=== PATIENT | male | born 1950 | race Hispanic/Latino ===

== ENCOUNTER → 2018-10-17 | Outpatient (CLI) | payer OTHER ==
[~2018-10-17] MED LIST: ASPI-891 PO; CHOL200074 PO; ESCI5TAB PO; FERR159T2 PO; LOSA50TA64 PO; METO25TA3 PO; NITR0.4T SL; SIMV40TA59 PO
[2018-10-17 14:32] LABS: CREATININE 0.9 mg/dL (0.5-1.5)
== END | disposition home or self-care (01) ==
LOC: LAB 13:20
PROVIDERS: ATTEND Neurological Surgery
DX: M48.062 Spinal stenosis, lumbar region with neurogenic claudication (principal)
CPT/HCPCS: 36415; 82565; 84520

== ENCOUNTER 2018-11-15 06:07 | Day surgery (SDC) | payer OTHER ==
[2018-11-14 15:12] VITALS: BP 135/77
[2018-11-14 15:51] LABS: EOSINOPHILS % (AUTO) 4.9 % (0.0-8.0); HEMATOCRIT 43.2 % (42-54); LYMPHOCYTES % (AUTO) 24.5 % (21.0-51.0); MEAN CORPUSCULAR HEMOGLOBIN 31.7 pg (27.0-33.0); MEAN CORPUSCULAR HGB CONC 33.7 g/dL (32.0-36.0); MEAN CORPUSCULAR VOLUME 94.2 fL (79-99); NEUTROPHILS % (AUTO) 62.6 % (40.0-77.0); PLATELET COUNT (AUTO) 267 K/uL (130-400); RED BLOOD CELL COUNT(AUTO) 4.59 MIL/uL (4.50-6.20); RED CELL DISTRIBUTION WIDTH 13.7 % (11.0-15.5); WHITE BLOOD COUNT (AUTO) 10.4 K/uL (4.8-10.8)
[2018-11-14 16:02] LABS: POTASSIUM 4.2 mmol/L (3.5-5.1)
[2018-11-14 16:27] LABS: CREATININE 0.8 mg/dL (0.5-1.5)
[~2018-11-15] VITALS: Ht 167.6 cm; Wt 112.5 kg
[~2018-11-15 06:07] MED LIST changes: +ASPI-555 PO; -ASPI-891 PO; -CHOL200074 PO; +ESCI20TA36 PO; -ESCI5TAB PO; -FERR159T2 PO; +METO-408 PO; -METO25TA3 PO
[2018-11-15 06:30] VITALS: BP 135/78
[2018-11-15] MEDS ORDERED: IOPAMIDOL 10 ML VIAL ONE ×3 (07:03→07:42)
[2018-11-15] MEDS ORDERED: ISOVUE-M 200 20 ML VIAL IT ONE (07:04)
[2018-11-15] MEDS ORDERED: LIDOCAINE HCL 1% 20 ML VIAL ONE (07:28)
--- NOTE | 2018-11-15 08:00 | NUR ---
CT LUMBAR MYELOGRAM PROCEDURE PERFORMED BY DR chris cazares. PUNCTURE SITE LOWER BACK. PATIENT TOLERATED PROCEDURE WELL. CONTRAST INJECTION OF ISOVUE 200MG/20ML GIVEN AT 0730. END OF PROCEDURE AT 0740. SPINAL NEEDLE REMOVED AND BAND AID APPLIED WITH NO BLEEDING NOTED. REPORT GIVEN TO Gunnar ALCALA RN AND PATIENT TRANSPORTED TO DAY PATIENT VIA BED AT 0800. AAO X3 WITH NO C/O PAIN.
[2018-11-15 08:10] VITALS: BP 118/74
[2018-11-15 08:25] VITALS: BP 117/71
[2018-11-15 08:40] VITALS: BP 123/69
[2018-11-15 08:55] VITALS: BP 123/69
[2018-11-15 10:00] VITALS: BP 128/70
--- NOTE | 2018-11-15 10:45 | NUR ---
PT RECEIVED FROM IR NO PAIN OR DRAINAGE TO SITE. TIME OF BED REST 1 HR AND 2 HOURS TO BE D/C FROM TIME OF ARRIVAL TO DAY PATIENT.
--- NOTE | 2018-11-15 10:46 | NUR ---
D/C PT LEFT VIA WHEEL CHAIR IN PVT CAR WITH SPOUSE WITH NO PAIN, NO DISCHARGE TO SITE ON BACK. PT SCHEDULED WITH F/U Nov 10:30 AM.
== END 2018-11-15 10:20 | disposition home or self-care (01) ==
LOC: DAH 06:07
PROVIDERS: ATTEND Neurological Surgery
DX: M54.16 Radiculopathy, lumbar region (principal); E66.01 Morbid (severe) obesity due to excess calories; I25.2 Old myocardial infarction; I25.10 Atherosclerotic heart disease of native coronary artery without angina pectoris; F32.9 Major depressive disorder, single episode, unspecified; F17.210 Nicotine dependence, cigarettes, uncomplicated; Z72.89 Other problems related to lifestyle; Z98.890 Other specified postprocedural states; Z68.41 Body mass index [BMI] 40.0-44.9, adult; Z79.82 Long term (current) use of aspirin; Z79.899 Other long term (current) drug therapy; Z82.49 Family history of ischemic heart disease and other diseases of the circulatory system; Z83.3 Family history of diabetes mellitus
CPT/HCPCS: 36415; 62304; 72132; 80048; 85025; 93005; A4606; Q9966

== ENCOUNTER 2018-12-23 12:00 | Observation (INO) | payer OTHER ==
[~2018-12-23] VITALS: Ht 167.6 cm; Wt 112.6 kg
[~2018-12-23 12:00] MED LIST changes: -ASPI-555 PO; -ESCI20TA36 PO; -LOSA50TA64 PO; -METO-408 PO; -NITR0.4T SL
[2018-12-23 13:05] VITALS: BP 132/65
[2018-12-23 13:16] LABS: BASOPHILS % (AUTO) 1.3 % (0.0-5.0); EOSINOPHILS % (AUTO) 5.8 % (0.0-8.0); LYMPHOCYTES % (AUTO) 31.7 % (21.0-51.0); MEAN CORPUSCULAR HGB CONC 34.5 g/dL (32.0-36.0); MEAN CORPUSCULAR VOLUME 92.9 fL (79-99); MONOCYTES % (AUTO) 5.6 % (3.0-13.0); NEUTROPHILS % (AUTO) 55.6 % (40.0-77.0); PLATELET COUNT (AUTO) 274 K/uL (130-400); RED BLOOD CELL COUNT(AUTO) 4.62 MIL/uL (4.50-6.20); RED CELL DISTRIBUTION WIDTH 13.5 % (11.0-15.5); WHITE BLOOD COUNT (AUTO) 9.6 K/uL (4.8-10.8)
[2018-12-23 13:32] LABS: CREATININE 0.9 mg/dL (0.5-1.5); POTASSIUM 4.4 mmol/L (3.5-5.1)
[2018-12-23] MEDS ORDERED: LOSA50TA64 PO (14:22)
[2018-12-23] MEDS ORDERED: ASPI-1181 PO (14:22)
[2018-12-23] MEDS ORDERED: METO-408 PO (14:22)
[2018-12-23] MEDS ORDERED: ESCI20TA PO (14:22)
[2018-12-27] VITALS (23 sets, daily range): BP systolic 96–129; BP diastolic 48–93
[2018-12-27] MEDS ORDERED: LACTATED RINGERS 1000ML 1,000 ML IV ONE (06:26)
[2018-12-27] MEDS ORDERED: CEFAZOLIN SODIUM 1 GM VIAL ONE (06:26)
[2018-12-27] MEDS ORDERED: BUPIVACAINE/EPI/PF 0.25% 50 ML VIAL ONE (06:43)
[2018-12-27] MEDS ORDERED: THROMBIN-JMI 20000 UNIT KIT TP ONE (06:43)
[2018-12-27] MEDS ORDERED: DURAMORPH PF1 MG/ML 10ML AMP IV ONE (06:43)
[2018-12-27] MEDS ORDERED: BACITRACIN 50,000 UNIT VIAL ONE (06:43)
[2018-12-27] MEDS ORDERED: NITR0.4T50 SL (06:53)
[2018-12-27] MEDS ORDERED: VITA1TAB63 PO (06:54)
[2018-12-27] MEDS ORDERED: PROPOFOL 10 MG/ML 20ML VIAL IV ONE (07:24)
[2018-12-27] MEDS ORDERED: FENTANYL CITRATE PF 50 MCG/1 ML 5ML AMP IV ONE (07:24)
[2018-12-27] MEDS ORDERED: MIDAZOLAM HCL 1 MG/ML 2ML VIAL ONE (07:24)
[2018-12-27] MEDS ORDERED: LIDOCAINE PF 2% 5ML ABBOJECT ONE (07:27)
[2018-12-27] MEDS ORDERED: ROCURONIUM 10MG/1ML SYR 10 MG/ML ML ONE ×2 (07:27→09:09)
[2018-12-27] MEDS ORDERED: GENTAMICIN 80 MG/NS 100 ML PB 100 ML IV ONE (08:19)
[2018-12-27] MEDS ORDERED: ONDANSETRON HCL 4 MG/2 ML VIAL ONE (08:41)
[2018-12-27] MEDS ORDERED: DEXAMETHASONE SOD PHOSPHATE 4 MG/ML 1ML VIAL ONE ×5 (08:41→08:43)
[2018-12-27] MEDS ORDERED: NEOSTIGMINE 5MG/5ML SYR IV ONE (10:47)
[2018-12-27] MEDS ORDERED: GLYCOPYRROLATE 1 MG/5 ML SYRINGE ONE (10:47)
[2018-12-27] MEDS ORDERED: KETOROLAC TROMETHAMINE 30MG/ML ONE (11:08)
[2018-12-27] MEDS ORDERED: FENTANYL CITRATE PF 50 MCG/1 ML 2ML VIAL ONE (11:17)
[2018-12-27] MEDS ORDERED: NITROGLYCERIN 0.4 MG SL TAB SL SCH (11:30)
[2018-12-27] MEDS ORDERED: HYDROCODONE/ACETAMINOPHEN 5/325 MG TAB PO PRN (11:30)
[2018-12-27] MEDS: DEXAMETHASONE SOD PHOSPHATE 4 MG/ML 1ML VIAL IVP SCH ×2 (11:30→18:15)
[2018-12-27] MEDS ORDERED: PROMETHAZINE HCL 25 MG/ML 1ML AMPULE IM PRN (11:30)
[2018-12-27] MEDS ORDERED: SODIUM CHLORIDE 0.9% 10 ML VIAL IVP PRN (11:30)
[2018-12-27] MEDS: CEFAZOLIN SODIUM 1 GM VIAL ONE ×2 (11:42→11:50)
[2018-12-27] MEDS: LACTATED RINGERS 1000ML 1,000 ML IV SCH (14:22)
[2018-12-27] MEDS: MORPHINE SULFATE 2 MG/ML 1ML SYG IVP PRN (19:47)
[2018-12-27] MEDS ORDERED: CEFAZOLIN SODIUM 1 GM VIAL IVP SCH (20:00)
[2018-12-27] MEDS ORDERED: SIMVASTATIN 20 MG TABLET PO SCH (21:00)
[2018-12-27] MEDS ORDERED: ASPIRIN 81 MG EC TAB PO SCH (21:00)
[2018-12-27] MEDS ORDERED: LOSARTAN 50 MG TABLET PO SCH (21:00)
[2018-12-28] MEDS: MORPHINE SULFATE 2 MG/ML 1ML SYG IVP PRN (00:06)
[2018-12-28] MEDS: DEXAMETHASONE SOD PHOSPHATE 4 MG/ML 1ML VIAL IVP SCH ×3 (00:06→11:30)
[2018-12-28] MEDS: LACTATED RINGERS 1000ML 1,000 ML IV SCH (00:15)
[2018-12-28] MEDS ORDERED: TEMAZEPAM 15 MG CAPSULE ONE (00:59)
[2018-12-28] MEDS ORDERED: MAG HYDROX/AL HYDROX/SIMETH ES 30 ML SUSP UDCUP ONE (01:15)
[2018-12-28] MEDS ORDERED: MAG HYDROX/AL HYDROX/SIMETH ES 30 ML SUSP UDCUP PO PRN (01:30)
[2018-12-28] MEDS ORDERED: TEMAZEPAM 15 MG CAPSULE PO PRN (01:30)
[2018-12-28 03:18] VITALS: BP 112/56
[2018-12-28 07:58] VITALS: BP 97/61
--- NOTE | 2018-12-28 14:30 | NUR ---
DISCHARGE S/P VOID AFTER HANNA REMOVAL. LATE DISCHARGE DUE TO PENDING DR. LUNA TO ROUND AFTER HIS SURGERY CASE. OK TO DISCHARGE HOME PER DR. LUNA. SCAR REMOVED, CATH TIP INTACT. DRESSING TO LOWER BACK CHANGED, INCISION IS DRY AND INTACT. DRESSING CHANGE TEACHING DONE WITH PATIENT AND USING TEACHBACK, VERBALIZED UNDERSTANDING. IV REMOVED, CATH TIP INTACT. DR. LUNA INCISION CARE INSTRUCTIONS GIVE AND REVIEWED WITH PATIENT, VERBALIZED UNDERSTANDING. STAPLE REMOVAL KIT GIVE TO . PENDING TO BE TRANSFERRED OUT VIA PRIVATE VEHICLE.
[2018-12-28] MEDS ORDERED: Metoprolol Succinate 25 MG PO SCH (21:00)
== END 2018-12-28 14:44 | disposition home or self-care (01) ==
LOC: EDSTATUS 12:00 → DAHIP 12-27 05:48 → 4AH 12-27 11:31
PROVIDERS: ADMIT Neurological Surgery; ATTEND Neurological Surgery
DX: M48.061 Spinal stenosis, lumbar region without neurogenic claudication (principal); I25.10 Atherosclerotic heart disease of native coronary artery without angina pectoris; I25.2 Old myocardial infarction; I25.5 Ischemic cardiomyopathy; M21.379 Foot drop, unspecified foot; Z98.61 Coronary angioplasty status; Z95.810 Presence of automatic (implantable) cardiac defibrillator; Z79.899 Other long term (current) drug therapy
CPT/HCPCS: 36415; 63047; 63048 ×2; 72020; 80048; 85025; 96374; 96375 ×2; 96376; A4215; A4221; A4222; A4223; A4344; A4510; A4600; A4649 ×4; A4663; G0378 ×28; J0690 ×3; J1100 ×8; J1580; J1885; J2001; J2250; J2274; J2405; J2704; J2710; J3010 ×2; J3490 ×2; J7030; J7120 ×3